=== PATIENT | male | born 1985 | race Caucasian/White ===

== ENCOUNTER 2023-03-12 13:23 | Emergency (ER) | payer SELFPAY ==
[~2023-03-12] VITALS: Ht 172.7 cm; Wt 72.6 kg
[2023-03-12 13:30] VITALS: O2SAT 99
== END 2023-03-12 16:16 | disposition home or self-care (01) ==
LOC: ER 13:43
DX: M54.2 Cervicalgia (principal); S10.83XA Contusion of other specified part of neck, initial encounter; V43.62XA Car passenger injured in collision with other type car in traffic accident, initial encounter; Y92.488 Other paved roadways as the place of occurrence of the external cause
CPT/HCPCS: 99284